=== PATIENT | female | born 2000 | race Caucasian/White ===

== ENCOUNTER 2018-10-24 08:44 | Observation (INO) | payer SELFPAY ==
[2018-10-24] MEDS ORDERED: NS 0.9% 1000 ML** 1,000 ML IV ONE (09:02)
--- NOTE | 2018-10-24 09:14 | ED ---
Substance Abuse/Use - HPI Summary HPI Summary: This patient is a 18 year old F brought in by ambulance to [facility] with chief complaint of OD and SI after taking 12 50 mg tablets of Benadryl at 01:00. Per triage note, the patient took the pills with the intention to harm herself. The patient rates the pain 0/10 in severity. Symptoms aggravated by nothing. Symptoms alleviated by nothing. Patient reports that she has done this before. She notes she takes Wellbutrin, lamictal, and Risperdal. - History Of Current Complaint Chief Complaint: EDOverdose Stated Complaint: 941 Time Seen by Provider: 10/24/18 08:54 Hx Obtained From: Patient Onset/Duration of Drug/ETOH Abuse: Hours Ingestion History: Type/Name Of Drug - benadryl, Amount Ingested - 12 50 mg tablets, Approximate Time Of Ingestion - 01:00 Overdose Characteristics: Oral Severity Initially: Mild Severity Currently: Moderate Character: Lethargic Aggravating Factor(s): Nothing Alleviating Factor(s): Nothing Associated Signs And Symptoms: Intentional Ingestion Related Hx: Suicidal, Suicidal: Prior Attempt(s), Suicidal: Thoughts, Suicidal: Plan, Suicidal: Gesture - Allergies/Home Medications Allergies/Adverse Reactions: Allergies Allergy/AdvReac Type Severity Reaction Status Date / Time No Known Allergies Allergy Verified 10/24/18 08:47 PMH/Surg Hx/FS Hx/Imm Hx Cardiovascular History: Denies: Hx Hypertension Opthamlomology History: Denies: Hx Legally Blind EENT History: Denies: Hx Deafness Psychiatric History: Reports: Hx Suicide Attempt - Surgical History Surgery Procedure, Year, and Place: none Infectious Disease History: No Infectious Disease History: Denies: Traveled Outside the [place] in Last 30 Days - Family History Known Family History: Negative: Diabetes - Social History Alcohol Use: Occasionally Substance Use Type: Reports: Marijuana Substance Use Comment - Amount & Last Used: 10/23/18 Smoking Status (MU): Never Smoked Tobacco Review of Systems Negative: Fever Negative: Epistaxis Negative: Cough Positive: Slurred Speech Psychological: Other - SI with suicide attempt All Other Systems Reviewed And Are Negative: Yes Physical Exam - Summary Physical Exam Summary: Appearance: The patient is well-nourished in no acute distress and in no acute pain. Skin: The skin is warm and dry and skin color reflects adequate perfusion. HEENT: The head is normocephalic and atraumatic. The pupils are 2-3 and reactive. The conjunctivae are clear and without drainage. Nares are patent and without drainage. Mouth reveals moist mucous membranes and the throat is without erythema and exudate. The external ears are intact. The ear canals are patent and without drainage. The tympanic membranes are intact. Neck: The neck is supple with full range of motion and non-tender. There are no carotid bruits. There is no neck vein distension. Respiratory: Chest is non-tender. Lungs are clear to auscultation and breath sounds are symmetrical and equal. Cardiovascular: Heart is tachycardia and regular rhythm. There is no murmur or rub auscultated. There is no peripheral edema and pulses are symmetrical and equal. Abdomen: The abdomen is soft and non-tender. There are normal bowel sounds heard in all four quadrants and there is no organomegaly palpated. Musculoskeletal: There is no back tenderness noted. Extremities are non-tender with full range of motion. There is good capillary refill. There is no peripheral edema or calf tenderness elicited. Neurological: Patient is alert and oriented to person, place and time. The patient has symmetrical motor strength in all four extremities. Cranial nerves are grossly intact. Deep tendon reflexes are symmetrical and equal in all four extremities. Patient has slurred speech. Psychiatric: The patient has an appropriate affect and does not exhibit any anxiety or depression. Triage Information Reviewed: Yes Vital Signs On Initial Exam: Initial Vitals Temp Pulse Resp BP Pulse Ox 98.8 F 125 16 139/101 97 10/24/18 08:45 10/24/18 08:45 10/24/18 08:45 10/24/18 08:45 10/24/18 08:45 Vital Signs Reviewed: Yes Diagnostics - Vital Signs Vital Signs Temp Pulse Resp BP Pulse Ox 10/24/18 08:45 98.8 F 125 16 139/101 97 - Laboratory Result Diagrams: 10/24/18 08:18 10/24/18 08:18 Lab Statement: Any lab studies that have been ordered have been reviewed, and results considered in the medical decision making process. - EKG 08:44 Cardiac Rate: Tachycardia - at 128 bpm EKG Rhythm: Sinus Tachycardia - Sinus tachycardia at 128 bpm with QTc of 450. Course/Dx - Course Course Of Treatment: Ms. Richard presented reporting an overdose of Benadryl during the night. She reports that it was 1 AM will not say why she took the Benadryl. She is tachycardic on arrival and slurring her speech somewhat. She is not ataxic. She was treated with supportive measures and monitored while labs were obtained and she was observed for a couple of hours. Even after IV normal saline she continued to be tachycardic with slurred speech and I do not think that she will be able to be medically cleared in the emergency department. The hospitalist service was contacted and agreed to admit her for further observation and evaluation and then until health evaluation. - Diagnoses Provider Diagnoses: Antihistamines overdose - Physician Notifications Discussed Care Of Patient With: Kyaw Osorio Time Discussed With Above Provider: 11:10 Instructed by Provider To: Admit As Inpatient - Critical Care Time Critical Care Time: 30-74 min Discharge - Sign-Out/Discharge Documenting (check all that apply): Patient Departure - admit to [facility] Patient Received Moderate/Deep Sedation with Procedure: No - Discharge Plan Condition: Fair Disposition: ADMITTED TO [facility] - Billing Disposition and Condition Condition: FAIR Disposition: Admitted to [facility] - Attestation Statements Document Initiated by Scribe: Yes Documenting Scribe: Aniya León Provider For Whom Scribe is Documenting (Include Credential): Dalton Martino MD Scribe Attestation: Aniya Orozco, scribed for Dalton Martino MD on 10/24/18 at 1550. Scribe Documentation Reviewed: Yes Provider Attestation: The documentation as recorded by the scribeAniya accurately reflects the service I personally performed and the decisions made by Dalton pettit MD Status of Scribe Document: Viewed
[2018-10-24 09:18] LABS: ABS Basophils 0 10^3/ul (0-0.2); ABS Eosinophils 0.4 10^3/ul (0-0.6); ABS Lymphocytes 1.6 10^3/ul (1.0-4.8); ABS Monocytes 0.6 10^3/ul (0-0.8); ABS Neutrophils 7.7 10^3/ul (1.5-7.7); ABS Nucleated RBC 0 10^3/ul; Eosinophil % 3.5 %; Hematocrit 40 % (35-47); Hemoglobin 13.4 g/dl (12.0-16.0); Lymphocyte % 15.3 %; Mean Corpuscular HGB Conc 34 g/dl (31-36); Mean Corpuscular Hemoglobin 31 pg (27-31); Mean Corpuscular Volume 93 fL (80-97); Nucleated Red Blood Cells % 0; Platelet Count 286 10^3/ul (150-450); Red Blood Count 4.32 10^6/ul (4.00-5.40); Red Cell Distribution Width 13 % (10.5-15); White Blood Count 10.3 10^3/ul (3.5-10.8)
[2018-10-24 09:37] LABS: ALT 9 U/L (7-52); AST 14 U/L (13-39); Albumin 4.3 g/dL (3.2-5.2); Albumin/Globulin Ratio 1.7 (1-3); Alkaline Phosphatase 71 U/L (34-104); Anion Gap 8 mmol/L (2-11); BUN/Creatinine Ratio 8.2 (8-20); Blood Urea Nitrogen 8 mg/dL (6-24); CO2 Carbon Dioxide 26 mmol/L (22-32); Calcium 9.7 mg/dL (8.6-10.3); Chloride 107 mmol/L (101-111); EGFR African American 88.6 (>60); EGFR Non-African American 73.2 (>60); Globulin 2.6 g/dL (2-4); Glucose 104 mg/dL (70-100); Potassium 3.7 mmol/L (3.5-5.0); Sodium 141 mmol/L (135-145); Total Protein 6.9 g/dL (6.4-8.9)
[2018-10-24 09:45] LABS: HCG Pregnancy < 0.60 mIU/mL
[2018-10-24 10:35] LABS: Urine Appearance Cloudy; Urine Bilirubin Negative (Negative); Urine Blood Negative (Negative); Urine Color Straw; Urine Glucose Negative (Negative); Urine Ketones Negative (Negative); Urine Nitrite Negative (Negative); Urine Protein Negative (Negative); Urine Specific Gravity 1.003 (1.010-1.030); Urine Urobilinogen Negative (Negative)
[2018-10-24 10:45] LABS: Barbiturates Urine Screen None Detected (None Detect); Benzodiazepine Urine Screen None Detected (None Detect); Urine Cannabinoids Screen None Detected (None Detect)
[2018-10-24 10:48] LABS: Acetaminophen < 15 mcg/mL; Alcohol < 10 mg/dL (<10); Salicylate < 2.50 mg/dL (<30)
[2018-10-24] MEDS: NS 0.9% 1000 ML** 1,000 ML IV SCH ×2 (13:02→21:37)
--- NOTE | 2018-10-24 13:41 | HP ---
AMENDED REPORT NOW INCLUDES COSIGNER DESIGNATION CC: Dr. Carrasco, [place], [place] * HISTORY AND PHYSICAL: DATE OF ADMISSION: 10/24/18 ATTENDING PHYSICIAN: Dr. Osorio * (report dictated by Jarod Reeves NP). PRIMARY CARE PROVIDER: [facility]. PSYCHIATRIST: Dr. Carrasco, [place], [place]. CHIEF COMPLAINT: Overdose. HISTORY OF PRESENT ILLNESS: Ms. Richard is a 18-year-old female who was brought in by an ambulance to [facility] Emergency Department with a chief complaint of overdose and suicidal ideation after taking 12 tablets of possible Benadryl or an [id number]-[id number] sleeping aid. On initial arrival to the emergency department, the patient reported she took pills with the intention to harm herself. She reported to the emergency department nurse that she was "attempting to kill herself," and stated, "everyone is going to be so disappointed with me. Everything is just so hard." She also reported "a rash that is everywhere". The emergency department spoke with Poison Control, "[employer]", who recommended at least 6 hours of telemetry monitoring and IV fluids. The patient did receive 1 L of normal saline in the emergency department. Hospital Medicine was asked to evaluate the patient for admission due to continued tachycardia with heart in the 120s to 140s and the patient was seen and evaluated in the ER, where she was found to be alert and oriented x3 and noted to be quite upset that she was going to be admitted. She is refusing admission now stating that she did not try to kill herself. She also reported that she has "done this before in the past" and never had to stay overnight. She did admit to overdosing on Ativan as a teenager intentionally and has had an inpatient psychiatry admission. However, on exam the patient was very confrontational stating she would not give me any more information and to leave her alone. She did not allow me to do a physical examination or to ask her any further questions. The patient did give me permission to speak with her parents over the phone who were both on the telephone and live in [place], [place]. This was in the room with that patient present. They reported that her psychiatrist in [place] is Dr. Carrasco. They were not sure of all her medications and dosages. The patient then interrupted my conversation with them and did not allow me to speak with them any further. She did also give me permission to let them know what she ingested; however, in trying to discuss with the patient, she was very defensive and states it was "sleeping aid" [employer] "is not quite sure of what the ingredients are." . The patient denies any symptoms. Denies SOB, Chest pain, Headache, nausea. PAST MEDICAL HISTORY: Depression/anxiety. Again, unable to get full past medical history. CURRENT MEDICATIONS: Per ER nursing note, she did report on admission, she takes: 1. Trazodone. 2. Lamictal. 3. Wellbutrin, For daily medications. However, again the patient would not admit this to me and/or give me dosages. ALLERGIES: No known allergies. FAMILY HISTORY: Unknown. SOCIAL HISTORY: The patient currently is a [employer] student. REVIEW OF SYSTEMS: The patient was noncompliant with any of my assessment questions. PHYSICAL EXAMINATION GENERAL APPEARANCE: The patient is alert and oriented x3, agitated, confrontational, no focal deficits noted on observation. I did see the patient get out of bed and walk to the bathroom. However, again, she would not allow me to complete the physical examination. VITAL SIGNS: Heart rate 135, respirations 18, pulse oximetry 99% on room air, temperature 98.8, and blood pressure 146/92. LABORATORY DATA AND DIAGNOSTIC STUDIES: Sodium 141, potassium 3.7, chloride 107, carbon dioxide 26, anion gap 8, creatinine 0.97, glucose 104, lactic acid 1.7, calcium 9.7. Total bilirubin 0.60, AST 14, ALT 9, alkaline phosphatase 71. Total protein 6.9, albumin 4.3. Beta-hCG less than 0.06. WBC is 10.3, RBC 4.2, Hgb 13.4, HCT 40, MCV 93, MCH 31, platelet count 286. Urinalysis unremarkable. Toxicology unremarkable. EKG: Sinus tachycardia with a rate of 128. No acute ST changes noted. ASSESSMENT AND PLAN: Ms. 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 Hospital Medicine is going to admit to telemetry for further monitoring of tachycardia and IV fluids. 1. Intentional Overdose and suicidal ideation. Per discussion with the patient and brief discussion with her parents, it sounds like she has previous history of depression, anxiety, and suicidal ideation and has been hospitalized for this in the past. Again, the patient's interview was limiting due to her not revealing any information about herself. The patient does not have capacity to make decisions at this time and she will be admitted involuntary. The plan will be to admit her to telemetry and continue IV fluids, repeat EKG in the morning. She will be evaluated by the psychiatry team. She will be placed on 1 :1 monitoring. 2. Depression/anxiety. Unclear her medication dosages. I will ask the nursing staff to call her pharmacy to try to obtain medications and dosages. 3. Code status. Full code. 4. DVT prophylaxis, current ambulation, low risk. 5. Disposition: Observation. TIME SPENT: Approximately 60 minutes was spent on this history and physical with greater than 50% of the time at the bedside interviewing the patient. This case was discussed with Dr. Osorio, who agrees with the plan of care. JAROD REEVES, GISELLA [id number]/[facility] #: [id number] MARQUITA
[2018-10-24] MEDS ORDERED: Propranolol TAB* 10 MG PO PRN (20:31)
[2018-10-24] MEDS ORDERED: Azithromycin TAB* 250 MG PO SCH (21:00)
[2018-10-24] MEDS ORDERED: BuPROPion XL* 300 MG TAB.XL PO SCH (21:00)
[2018-10-24] MEDS ORDERED: AZITHROMYCIN 250 MG PO SCH ×2 (21:00→22:30)
[2018-10-24] MEDS ORDERED: lamoTRIgine TAB(*) 100 MG PO SCH (21:00)
[2018-10-24] MEDS ORDERED: LEVONORGESTREL ETHIN ESTRADIOL PO SCH (22:30)
[2018-10-25 05:48] LABS: ABS Basophils 0 10^3/ul (0-0.2); ABS Eosinophils 0.6 10^3/ul (0-0.6); ABS Monocytes 0.6 10^3/ul (0-0.8); ABS Neutrophils 3.9 10^3/ul (1.5-7.7); ABS Nucleated RBC 0 10^3/ul; Eosinophil % 7.6 %; Hematocrit 35 % (35-47); Hemoglobin 11.5 g/dl (12.0-16.0); Lymphocyte % 36.5 %; Mean Corpuscular HGB Conc 33 g/dl (31-36); Mean Corpuscular Hemoglobin 31 pg (27-31); Mean Corpuscular Volume 94 fL (80-97); Mean Platelet Volume 8.1 fL (7.4-10.4); Nucleated Red Blood Cells % 0; Platelet Count 245 10^3/ul (150-450); Red Blood Count 3.74 10^6/ul (4.00-5.40); Red Cell Distribution Width 13 % (10.5-15); White Blood Count 8.1 10^3/ul (3.5-10.8)
[2018-10-25 06:06] LABS: BUN/Creatinine Ratio 8.2 (8-20); Calcium 9.2 mg/dL (8.6-10.3); EGFR African American 103.2 (>60); EGFR Non-African American 85.3 (>60); Magnesium 1.9 mg/dL (1.9-2.7); Potassium 3.9 mmol/L (3.5-5.0)
[2018-10-25] MEDS ORDERED: LEVONORGESTREL ETHIN ESTRADIOL PO SCH (09:00)
[2018-10-25] MEDS ORDERED: Acetaminophen TAB* 325 MG PO PRN (11:14)
[2018-10-25] MEDS ORDERED: Acetaminophen TAB* 325 MG ONE (11:21)
[2018-10-25 11:40] VITALS: BP 123/66
--- NOTE | 2018-10-25 14:37 | PN ---
Progress Note - Progress Note Date of Service: 10/25/18 Note: This 18 y/o braden at [place] admitted on medical for an intentional OD on a large amount of Benadryl which compromised her physical wellbeing and required hospitalization on Telemetry. She told everybody during and after admission that she had an intention to kill herself but today told me that she was never suicidal. Patient has h/o suicide attempt as a child requiring psychiatric hospitalizations. At this time she is unreliable and remains a risk for self harm if not hospitalized on BSU for her safety, diagnostic clarification and stabilization. Plan is to transfer her to BSU on involuntary status.
--- NOTE | 2018-10-25 21:33 | DS ---
CC: Aprylarley Asher DO (Peggy) * DISCHARGE SUMMARY: DATE OF ADMISSION: 10/24/18 DATE OF DISCHARGE: 10/25/18 PRIMARY CARE PROVIDER: None, although the patient does receive care at [facility]. PRIMARY DIAGNOSIS: Suicide attempt with overdose. SECONDARY DIAGNOSES: Include reported history of depression and anxiety. MEDICATIONS ON DISCHARGE: Unchanged from admission, however, likely to be adjusted at the mental health unit and include: 1. Risperidone 0.5 mg at bedtime. 2. Lamictal 200 mg at bedtime. 3. Propranolol 10 mg as needed. 4. Oral contraceptives 1 tab. 5. Bupropion XL 300 mg at bedtime. HISTORY OF PRESENT ILLNESS AND HOSPITAL COURSE: This is a 18-year-old female, a braden at [employer], brought to the hospital after ingesting 10 pills of a sleep aid, unknown which sleep aid, previously reported as Benadryl; however, unclear if this is the pill was after discussing with the patient. Poison Control was consulted. The patient required monitoring, was admitted to the hospital with serial EKGs as well as telemetry monitoring. She was tachycardic on presentation to the ER, resolved after IV fluids and monitoring. She had conveyed to this author that she intentionally took the medication as well as that she was on marijuana and it was in the setting of sometimes going high to low very fast, and low to high. She had related that she had taken the pills intentionally in the emergency room on admission and later to admitting provider. However, when initially evaluated by Psychiatry denied that was intentional. However, ultimately was accepted to mental health unit for intentional overdose and suicide attempt. She did not go voluntarily. There were no complications with this patient's hospital stay. She was maintained on one-to-one observation during the course of her hospital stay. FOLLOWUP: At followup, please; no other specific labs or vitals that need followup. TIME SPENT: Greater than 45 minutes was spent on discharge of this patient, greater than half was spent [id number] with the patient. [id number]/[facility] #: [id number] MARQUITA
== END 2018-10-25 16:45 ==
LOC: ED 08:44 → MEDTELE 12:05
PROVIDERS: ADMIT Internal Medicine; ATTEND Internal Medicine
DX: T45.0X2A Poisoning by antiallergic and antiemetic drugs, intentional self-harm, initial encounter (principal); Y92.9 Unspecified place or not applicable; R47.81 Slurred speech; F32.9 Major depressive disorder, single episode, unspecified; F41.9 Anxiety disorder, unspecified
CPT/HCPCS: 36415; 80048; 80053; 80307; 80320; 80329; 81003; 83605; 83735; 84702; 85025; 93005; 99285; A9270-GY; G0378; G0480

== ENCOUNTER 2018-10-25 15:29 | Inpatient (IN) | payer OTHER ==
[2018-10-25] MEDS: LEVONORGESTREL ETH ESTRAD PO SCH (20:40)
[2018-10-25] MEDS ORDERED: BuPROPion XL* 300 MG TAB.XL PO SCH (21:00)
[2018-10-25] MEDS ORDERED: lamoTRIgine TAB(*) 100 MG PO SCH (21:00)
[2018-10-25] MEDS ORDERED: PTO:Azithromycin TAB* 250 MG PO SCH (21:00)
--- NOTE | 2018-10-25 22:23 | HP ---
HISTORY AND PHYSICAL: DATE OF ADMISSION: 10/25/18 IDENTIFYING DATA: Izabela is a braden at [employer], who was brought to the emergency department after an intentional overdose on high doses of Benadryl. At that time, she was suicidal for some unknown reasons, which she is still not mentioning. CHIEF COMPLAINT: "I haven't thought about killing myself when I did the overdosing." HISTORY OF PRESENT ILLNESS: This 18-year-old female brought to the emergency department by ambulance after she herself called 911. She has history of 2 prior psychiatric hospitalizations under almost similar circumstances as a child. In the emergency room, she reported of having thoughts of committing suicide and continued to report that while she was transferred to the medical unit as well. However, during today's evaluation on the unit, she reported to me that this was not an intentional overdose, rather she tried to get some sleep and to do so, she took more than 20 over-the- counter Benadryl. Her statement during my assessment contradicted with all other statements that she made in the emergency department, EMT as well as the attending on the medical floor. At first, there was a decision made to send her home, however, when everything was discovered that she was changing her statements with regards to the overdose, she was no more a reliable historian and decision was made to bring her down to the unit. Review of collaterals while in the hospital indicated that she was medically compromised requiring to be admitted to the telemetry unit. Her heart rate remained between 120 and 140 and sometimes more. Although initially she declined to authorize to communicate with her parents, she allowed me to talk to her parents, who at first were supportive of taking her home and get some help on outpatient basis. However, the decision was eventually changed to admit her on the unit for her safety as well as more evaluation. PAST PSYCHIATRIC HISTORY: According to Izabela, she was diagnosed bipolar disorder and has been seeing a psychiatrist at [place]. As mentioned in the HPI , she had a 2 prior psychotic hospitalization as a child in the context of suicide attempts. SUBSTANCE ABUSE HISTORY: Izabela acknowledges of smoking marijuana on a daily basis, although she does not believe that is her main problem. PAST MEDICAL HISTORY: Unremarkable. CURRENT MEDICATIONS: Include: 1. Risperidone. 2. Lamictal. 3. Wellbutrin, dose unknown at this time. ALLERGIES: No known drug allergies. FAMILY PSYCHIATRIC HISTORY: Unknown. 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 PHYSICAL EXAMINATION At the time of admission was deferred per patient's request, moreover she just came down from the medical unit. She does not appear to be in any physical distress at this time and review of progress notes and recent physical exam does not indicate she is in any distress. She was medically cleared to be brought to the BSU. VITAL SIGNS: Her vitals at this time are stable. LABORATORY DATA: Review of labs was also unremarkable. MENTAL STATUS EXAMINATION: Healthy-appearing, neatly dressed and groomed, female, who is alert and oriented to time, place, and person. Her speech is normal in all spheres. Describes her mood as "okay." Observed affect appears to be somewhat dysphoric, but broad. Her intellectual function is within normal limits. There was no evidence of thoughts of perceptual disturbances at the time of evaluation. She continues to deny suicidal or homicidal ideations. Her memory functions were intact. Insight and judgment impaired. 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 DIAGNOSTIC IMPRESSION: MENTAL HEALTH DIAGNOSES: 1. Unspecified bipolar disorder. 2. Rule out bipolar 1 disorder. 3. Cannabis use disorder. PHYSICAL HEALTH DIAGNOSIS: Status post intentional overdose on large amount of Benadryl, requiring emergency and medical floor care. TREATMENT PLAN: Patient will remain hospitalized on the behavioral science unit for further evaluation and stabilization of any mood symptoms. She will also be monitored for her safety on the unit. Supportive milieu, individual and group therapy will be initiated. Her code status will remain full. We will continue her on outpatient medications and defer any change in her medication to her assigned psychiatrist on the unit. [id number]/[facility] #: [id number] [facility] HOSPITALFrancisca
[2018-10-26 08:32] VITALS: BP 128/84
[2018-10-26 08:35] LABS: HDL Cholesterol 62.9 mg/dL
[2018-10-26] MEDS: LEVONORGESTREL ETH ESTRAD PO SCH (11:32)
--- NOTE | 2018-10-26 11:51 | PN ---
MHU: Group Therapy Note - Service Type Service Type: 79612 Group Psychotherapy - Cognitive Behavioral Group Therapy ( CBT):Patient was attentive and participatory in CBT programming this morning, and remained in good behavioral control. Patient expressed positive insights regarding relevant treatment interventions and goals.
[2018-10-26] MEDS ORDERED: LEVONORGESTREL ETH ESTRAD PO SCH (21:00)
--- NOTE | 2018-10-26 21:08 | DS ---
CC: [facility]; Dr. Yris Pena * DISCHARGE SUMMARY: DATE OF ADMISSION: 10/24/18 DATE OF DISCHARGE: 10/26/18 SUPERVISING PSYCHIATRIST: Dr. Irineo Mcguire.* (DICTATED BY RENE HOBSON NP) DIAGNOSES: 1. Bipolar 1 disorder. 2. Cannabis use disorder in early remission. CONDITION AT THE TIME OF DISCHARGE: The patient is euthymic with bright affect. She is calm and in behavioral control. She reports eagerness to be discharged to resume academic obligations. Her parents are present and supportive of discharge plan. The patient identifies that she was intoxicated on marijuana when making an unsafe choice to take more Benadryl when she could not sleep. She reports desire to refrain from cannabis use. She is also agreeable to means restriction in regards to medications. The patient reports willingness to follow up with [facility] in the counseling center. She has a designated outpatient psychiatrist, who is currently on medical leave. The patient denied suicidal ideation. She denied recent depressive symptoms or mood lability. She states that she and her psychiatrist have been noticing a lot of progress of late. MENTAL STATUS EXAM: Izabela is a 18-year-old female, who appears stated age. She is well-groomed and casually dressed with her own clothing. She is alert and oriented x3. Speech is soft and articulate. Her eye contact is good. She reports her mood is "good" and presents as euthymic with full range of affect. Thought process is logical, goal directed, coherent. The patient denies suicidal ideation. There is no evidence of HI or . There are no perceptual disturbances noted. Memory is 3/3. Insight and judgment are good in that she has participated fully in discharge planning and interactions with parents and providers. INSTRUCTIONS TO PATIENT: A. Medications: She will resume current medications as we did not make any changes. She denies need for prescription refills. 1. Azithromycin 250 mg tab daily x2 more days. 2. Bupropion XL 300 mg p.o. daily. 3. Lamotrigine 200 mg p.o. at bedtime. 4. control pill 1 daily. 5. Propranolol 10 mg daily. 6. Risperidone 0.25 mg q.h.s. B. Diet: Regular. C. Activity: Ambulation as tolerated. There are no pending labs or diagnostic studies. Tobacco cessation is not applicable. D. Followup care: The patient was given an intake with [facility] on at noon. The patient will follow up with Dr. Yris Pena. We are awaiting a followup appointment. E. Substance use followup is not applicable. HOSPITAL COURSE: Part A: Reason for admission: The patient presented to the emergency department the evening of 10/24/18 after phoning 911. She reports overuse of Benadryl for sleep and admits to being high on marijuana at the time. She was admitted to telemetry due to tachycardia and stabilized. She transferred to the [facility] from Medical on 10/25/18. Part B: Psychiatric treatment rendered: The patient was admitted to adult behavioral services unit on involuntary status as she was a questionable historian with significant lethality concerns. Upon arrival to the mental health unit, the patient was pleasant and cooperative. She participated immediately in programming. She agreed to allow her parents to be present and available for discharge planning. As stated above, the patient agreed to meet with treatment team providers and her parents to discuss discharge planning. The patient denied suicidal ideation. She denied recent thoughts of self-harm or passive wish. She and her parents report that she has not had any severe mental health episodes for years. The patient's outpatient psychiatrist is on sudden medical leave; I left messages for Dr. Pena as did the patient's parents. In order to facilitate more expedient discharge, the patient was agreeable to referral to [facility] while awaiting Dr. Pena to return from medical leave. Due to obligation to treat in a least restrictive setting, discharge was agreed upon by treatment team. The patient reported concern for increased decompensation if hospitalization continued. As stated above, the patient's parents were present and agreeable with discharge plan. ADDENDUM: 10/27/18: spoke with Dr Pena and discussed patient presentation and discharge plan. RENE HOBSON NP [id number]/CPS #: [id number] MARQUITA
== END 2018-10-26 13:52 | disposition home or self-care (01) | DRG 885 ==
LOC: BSU 17:00
PROVIDERS: ADMIT Psychiatry & Neurology Psychiatry; ATTEND Psychiatry & Neurology Psychiatry
DX: F31.9 Bipolar disorder, unspecified (principal); F12.90 Cannabis use, unspecified, uncomplicated; T14.91XD Suicide attempt, subsequent encounter; T45.0X2D Poisoning by antiallergic and antiemetic drugs, intentional self-harm, subsequent encounter; Z79.899 Other long term (current) drug therapy
CPT/HCPCS: 36415; 80061; 83036; 99222; 99238; A9270-GY